=== PATIENT | female | born 1945 | race Caucasian/White ===

== ENCOUNTER 2018-07-05 10:25 | Emergency (ER) | payer OTHER ==
[~2018-07-05] VITALS: Ht 152.4 cm; Wt 68.0 kg
[~2018-07-05 10:25] MED LIST: SIMVASTATIN40 MG; ZANTAC300 MG; [UNRECOGNIZED DRUG - OTHER]
[2018-07-05] MEDS ORDERED: COZAAR25 MG (10:51)
[2018-07-05] MEDS ORDERED: GLUCOSAMINE CH1 EAC5 (10:52)
[2018-07-05] MEDS ORDERED: CALCIUM600 MG (10:52)
[2018-07-05] MEDS ORDERED: DITROPAN XL10 MG (10:52)
[2018-07-05] MEDS ORDERED: TRIAMCINOLONE A15 G3 TOP (13:42)
[2018-07-05] MEDS ORDERED: ALL DAY ALLERGY10 M3 PO (13:42)
[2018-07-05] MEDS ORDERED: MEDROLPACK PO (13:42)
== END 2018-07-05 14:03 | disposition home or self-care (01) ==
LOC: ER 10:25
DX: L50.0 Allergic urticaria (principal); T49.0X5A Adverse effect of local antifungal, anti-infective and anti-inflammatory drugs, initial encounter; Y92.89 Other specified places as the place of occurrence of the external cause

== ENCOUNTER 2022-09-23 14:21 | Emergency (ER) | payer OTHER ==
[~2022-09-23] VITALS: Ht 154.9 cm; Wt 72.6 kg
[~2022-09-23 14:21] MED LIST changes: +ALL DAY ALLERGY10 M3 PO; +CALCIUM600 MG; +COZAAR25 MG; +DITROPAN XL10 MG; +GLUCOSAMINE CH1 EAC5; +MEDROLPACK PO; +TRIAMCINOLONE A15 G3 TOP
[2022-09-23] MEDS ORDERED: TOPROL XL25 M1 PO (14:40)
== END 2022-09-23 22:31 | disposition home or self-care (01) ==
LOC: ER 14:21
DX: S00.93XA Contusion of unspecified part of head, initial encounter (principal); W10.8XXA Fall (on) (from) other stairs and steps, initial encounter; Y92.018 Other place in single-family (private) house as the place of occurrence of the external cause; Y99.9 Unspecified external cause status; I10 Essential (primary) hypertension